=== PATIENT | female | born 1995 | race Caucasian/White ===

== ENCOUNTER 2021-03-30 09:32 | Outpatient (RCR) | payer BC, SELFPAY ==
[2021-03-24 08:07] VITALS: BMI 30.2
[2021-03-24 08:12] VITALS: BMI 30.2
== END 2021-06-08 12:10 | disposition home or self-care (01) ==
LOC: ANHDMC 09:32
PROVIDERS: PCP Physician Assistant; Visit Provider Obstetrics & Gynecology
DX: O24.419 Gestational diabetes mellitus in pregnancy, unspecified control (principal); Z3A.00 Weeks of gestation of pregnancy not specified; Z71.3 Dietary counseling and surveillance; Z71.89 Other specified counseling
CPT/HCPCS: 76816; 76819; 97802; G0108

== ENCOUNTER 2021-04-28 11:37 | Outpatient (RCR) | payer BC, SELFPAY ==
[2021-01-20 09:58] VITALS: BP 113/64; PULSE 82
[2021-03-30 10:05] VITALS: PULSE 88
[2021-04-03 08:02] VITALS: BP 102/66; PULSE 78
[2021-04-07 09:05] VITALS: BP 119/59; PULSE 90
[2021-04-10 08:20] VITALS: BP 115/61; PULSE 94
[2021-04-14 08:44] VITALS: BP 110/71; PULSE 89
[2021-04-17 08:16] VITALS: BP 116/72; PULSE 84
[2021-04-21 09:45] VITALS: BP 113/63; PULSE 82
[2021-04-24 08:15] VITALS: BP 116/68; PULSE 83
--- NOTE | ~2021-04-28 | US_ITS ---
EXAMINATION: US OB follow up w BPP EXAM DATE: 04/07/2021 08:58 INDICATION: GDM/BPP, CONCHITA, growth. 3rd trimester. TECHNIQUE: Pelvic obstetrical transabdominal sonogram was performed by a technologist. There are mu ltiple grayscale and Doppler images available for interpretation. Comparison is made to prior examina tion from 01/20/2021. FINDINGS: There is a single fetus identified in vertex presentation with a heart rate of 140 beats pe r minute. The placenta is located in the anterior position. There is no sonographic evidence of retr oplacental hemorrhage identified. The amniotic fluid index is 20.7 centimeters, which is normal. BIOMETRIC DATA: Biparietal diameter (BPD): 9.2 cm --------------> 37 weeks 3 days. Head circumference (HC): 32.5 cm ---------------> 36 weeks 6 days. Abdominal circumference (AC): 30.8 cm ---------> 34 weeks 5 days. Femur length (FL): 6.9 cm ------------------------> 35 weeks 3 days. These measurements are concordant. HC/AC ratio is 1.06 (The 5th -- 95th percentile range is 0.92-1.08. Estimated weight is 2667 g +/- 400 g. This is the 73rd percentile when the currently reported clinical gestation age 34 weeks 3 days, clinical estimated date of delivery (KIRILL-OPE) 05/16 is used. F etal estimated gestational age based on measurements from this exam is 36 weeks 1 day, with an estima camila date of delivery (KIRILL-AUA) 05/04. BIOPHYSICAL PROFILE (performed by the technologist) breathing (30 sec sustained breathing in 30 minutes): 2 out of 2 movement (3 gross body movements in 30 minutes): 2 out of 2 tone (one episode of vmtingr-mfahflgrz-iapggrr limb movement): 2 out of 2 Amniotic fluid pocket (2 cm): 2 out of 2 Total score: 8 out of 8 IMPRESSION: 1. Single fetus with heart rate of 140 bpm, 2667 g, the 73rd percentile using gestational age 34 wee ks 3 days. 2. Normal biophysical profile score of 8 out of 8. Reviewed, dictated and finalized at location B. CTOR TRADE IMPRESSION: 1. Single fetus with heart rate of 140 bpm, 2667 g, the 73rd percentile using gestational age 34 weeks 3 days. 2. Normal biophysical profile score of 8 out of 8.
--- NOTE | ~2021-04-28 | US_ITS ---
EXAMINATION: US OB BPP wo non-stress EXAM DATE: 04/21/2021 09:46 INDICATION: Gestational Diabetes 3rd trimester. TECHNIQUE: Pelvic obstetrical transabdominal sonogram was performed by a technologist. There are mu ltiple grayscale and Doppler images available for interpretation. Comparison is made to prior examina tion from 04/14/2021. FINDINGS: There is a single fetus identified in vertex presentation with a heart rate of 148 beats pe r minute. The placenta is located in the anterior position. There is no sonographic evidence of retr oplacental hemorrhage identified. BIOPHYSICAL PROFILE (performed by the technologist) breathing (30 sec sustained breathing in 30 minutes): 2 out of 2 movement (3 gross body movements in 30 minutes): 2 out of 2 tone (one episode of rctphku-giosrwiig-hpcbszu limb movement): 2 out of 2 Amniotic fluid pocket (2 cm): 2 out of 2 Total score: 8 out of 8 IMPRESSION: 1. Single fetus with heart rate of 148 bpm. 2. Normal biophysical profile score of 8 out of 8. Reviewed, dictated and finalized at location A. X RAY CONTROL EQUIPMENT REPAIRER
--- NOTE | ~2021-04-28 | US_ITS ---
EXAMINATION: US OB limited EXAM DATE: 01/20/2021 10:12 INDICATION: Status post fall, well being, check placenta. 2nd trimester. TECHNIQUE: Pelvic obstetrical transabdominal sonogram was performed by a technologist. There are mu ltiple grayscale and Doppler images available for interpretation. There are no earlier studies of th is gestation for comparison. FINDINGS: There is a single fetus identified in breech presentation with a heart rate of 157 beats pe r minute. The placenta is located in the anterior position. Placental margin to internal cervical os distance is 3.3 cm. There is hypoechoic region along the inferior retroplacental margin measuring 1.1 x 1.7 x 4.5 cm. Pos sible retroplacental marginal hematoma. IMPRESSION: 1. Single fetus in breech presentation with heart rate 157 beats per minute. 2. Retroplacental inferior marginal hypoechoic region, possible hematoma. Venous martínez would be anoth er consideration. Consider follow-up exam. Reviewed, dictated and finalized at location A. DENT ANALYST IMPRESSION: 1. Single fetus in breech presentation with heart rate 157 beats per minute. 2. Retroplacental inferior marginal hypoechoic region, possible hematoma. Veno us martínez would be another consideration. Consider follow-up exam.
--- NOTE | ~2021-04-28 | US_ITS ---
EXAMINATION: US OB BPP wo non-stress DATE: 04/14/2021 08:39 INDICATION: Gestational diabetes. Third trimester. TECHNIQUE: Real-time pelvic ultrasound was performed. COMPARISON: Ultrasound 04/07/2021 FINDINGS: There is a single living fetus in vertex presentation. The placenta is anterior. heart rate is 138 beats per minute (bpm). Biophysical profile performed by the technologist: breathing (30 sec sustained breathing in 30 minutes): 2 out of 2 movement (3 gross body movements in 30 minutes): 2 out of 2 tone (one episode of axjgooy-nacqigvcm-qwlymej limb movement): 2 out of 2 Amniotic fluid pocket (2 cm): 2 out of 2 Total score: 8 out of 8 IMPRESSION: 1. Single living fetus in vertex presentation. 2. Biophysical profile 8 out of 8. Reviewed, dictated and finalized at location A. SORTER
--- NOTE | ~2021-04-28 | US_ITS ---
EXAMINATION: US OB follow up w BPP DATE: 04/28/2021 12:41 INDICATION: Evaluate growth and biophysical profile. TECHNIQUE: Real-time ultrasound of the pelvis was performed. The interpreting radiologist was not pre sent for the study. COMPARISON: Comparison to multiple prior studies sequentially, with oldest reviewed study dated 09/2021. . FINDINGS: There is a single living fetus in vertex presentation. The placenta is anterior. cardiac activ ity and movement are noted. heart rate is 139 beats per minute (bpm). The amniotic fluid index is 11.5 cm, which is normal. The following biometric data were obtained: BPD: 97. cm corresponds to gestational age 39 weeks 4 day(s). Head circumference: 345 cm corresponds to gestational age 39 weeks 6 day(s). Abdominal circumference: 359 cm corresponds to gestational age 39 weeks 6 day(s). Femur length: 72 cm corresponds to gestational age 36 weeks 6 day(s). Head circumference to abdominal circumference ratio: 0.96. Estimated weight: 3702 g plus or minus 555 g. Biophysical profile performed by the technologist: breathing (30 sec sustained breathing in 30 minutes): 2 out of 2 movement (3 gross body movements in 30 minutes: 2 out of 2 tone (one episode of ykhnfgn-mfodtjvne-nwwzykc limb movement): 2 out of 2 Amniotic fluid pocket (2 cm): 2 out of 2 Total score: 8 out of 8 IMPRESSION: 1. Single living fetus in vertex presentation with heart rate of 139 bpm with an estimated gest ational age of 39 weeks 1 day by initial ultrasound (KIRILL 05/04/2021). 2. Normal placenta. 3. Biophysical profile 8 out of 8. Reviewed, dictated and finalized at location A. UCTION CLERKS SUPERVISOR IMPRESSION: 1. Single living fetus in vertex presentation with heart rate of 139 bpm with an estimated gestational age of 39 weeks 1 day by initial ultrasound (KIRILL 05/04/2021). 2. Normal placenta. 3. Biophysical profile 8 out of 8.
--- NOTE | ~2021-04-28 | US_ITS ---
CORRECTED REPORT Report moved from [id number]. 04/03/2021 cinda EXAMINATION: US OB follow up w BPP DATE: 03/30/2021 10:33 INDICATION: Gestational diabetes. Third trimester. TECHNIQUE: Real-time pelvic ultrasound was performed. COMPARISON: None. FINDINGS: There is a single living fetus in vertex presentation. The placenta is anterior. heart rate is 140 beats per minute (bpm). The amniotic fluid index is 15.4 cm, which is normal. The following biometric data were obtained: Biparietal diameter (BPD): 8.9 cm; head circumference (HC): 31.8 cm; abdominal circumference (AC): 31.3 cm; femur length (FL): 6.5 cm. These measurements are concordant. Estimated weight is 2536 g +/- 380 g, which correlates with the 87th percentile when 05/16/21 is used as estimated date of delivery. As single measurements, these parameters are each equal to the following estimated gestational ages: BPD: 35 weeks 5 days. HC: 35 weeks 6 days. AC: 35 weeks 1 days. FL: 33 weeks 4 days. estimated gestational age based solely on measurements from this exam is 35 weeks 1 days +/- 2 weeks 3 days. Biophysical profile performed by the technologist: breathing (30 sec sustained breathing in 30 minutes): 2 out of 2 movement (3 gross body movements in 30 minutes): 2 out of 2 tone (one episode of jqiippb-vyiwykgvg-slijtru limb movement): 2 out of 2 Amniotic fluid pocket (2 cm): 2 out of 2 Total score: 8 out of 8 IMPRESSION: 1. Single living fetus in vertex presentation. 2. Estimated weight is 2536 g +/- 380 g, which correlates with the 87th percentile when 05/16/21 is used as estimated date of delivery. 3. Biophysical profile 8 out of 8. Reviewed, dictated and finalized at location A. SAVAGE
[2021-04-28 14:51] VITALS: BP 121/73; PULSE 81
== END 2021-04-28 23:59 | disposition home or self-care (01) ==
LOC: ANHOBOP 11:37
PROVIDERS: PCP Physician Assistant; Visit Provider Obstetrics & Gynecology
DX: O99.891 Other specified diseases and conditions complicating pregnancy (principal); W19.XXXA Unspecified fall, initial encounter; Z3A.23 23 weeks gestation of pregnancy; O24.419 Gestational diabetes mellitus in pregnancy, unspecified control; Z3A.33 33 weeks gestation of pregnancy; Z3A.34 34 weeks gestation of pregnancy; Z3A.35 35 weeks gestation of pregnancy; Z3A.36 36 weeks gestation of pregnancy; Z3A.37 37 weeks gestation of pregnancy
CPT/HCPCS: 59025; 76815; 76816; 76819

== ENCOUNTER 2021-05-12 08:38 | Outpatient (RCR) | payer BC, SELFPAY ==
[2021-05-01 08:13] VITALS: BP 117/67; PULSE 97
[2021-05-05 09:40] VITALS: BP 114/67; PULSE 84
[2021-05-08 08:49] VITALS: BP 127/71; PULSE 83
--- NOTE | ~2021-05-12 | US_ITS ---
EXAMINATION: US OB follow up w BPP DATE: 05/12/2021 10:40 INDICATION: Gestational diabetes. Third trimester. TECHNIQUE: Real-time pelvic ultrasound was performed. COMPARISON: None. FINDINGS: There is a single living fetus in vertex presentation. The placenta is anterior. heart rate is 141 beats per minute (bpm). The amniotic fluid index is 14.8 cm, which is normal. The following biometric data were obtained: Biparietal diameter (BPD): 9.8 cm; head circumference (HC): 36.1 cm; abdominal circumference (AC): 36 .6 cm; femur length (FL): 7.8 cm. These measurements are concordant. Estimated weight is 4117 g +/- 618 g, which correlates with the 91st percentile when 05/16/21 is used as estimated date of delivery. As single measurements, these parameters are each equal to the following estimated gestational ages: BPD: 40 weeks 0 days. HC: Out of range. AC: 40 weeks 4 days. FL: 39 weeks 5 days. estimated gestational age based solely on measurements from this exam is 40 weeks 1 days +/- 2 weeks 6 days. Biophysical profile performed by the technologist: breathing (30 sec sustained breathing in 30 minutes): 2 out of 2 movement (3 gross body movements in 30 minutes): 2 out of 2 tone (one episode of nzoroci-spbqxbwfc-kgnigyf limb movement): 2 out of 2 Amniotic fluid pocket (2 cm): 2 out of 2 Total score: 8 out of 8 IMPRESSION: 1. Single living fetus in vertex presentation. 2. Large for gestational age. Estimated weight is 4117 g +/- 618 g, which correlates with the 9 1st percentile when 05/16/21 is used as estimated date of delivery. 3. Biophysical profile 8 out of 8. Reviewed, dictated and finalized at location A. IMPRESSION: 1. Single living fetus in vertex presentation. 2. Large for gestational age. Estimated weight is 4117 g +/- 618 g, which correlates with the 91st percentile when 05/16/21 is used as estimated date of delivery. 3. Biophysical profile 8 out of 8.
--- NOTE | ~2021-05-12 | US_ITS ---
EXAMINATION: US OB BPP wo non-stress EXAM DATE: 05/05/2021 09:35 INDICATION: GDM 3rd trimester. TECHNIQUE: Pelvic obstetrical transabdominal sonogram was performed by a technologist. There are mu ltiple grayscale and Doppler images available for interpretation. Comparison is made to prior examina tion from 04/28/2021. FINDINGS: There is a single fetus identified in vertex presentation with a heart rate of 147 beats pe r minute. The placenta is located in the anterior position. There is no sonographic evidence of retr oplacental hemorrhage identified. BIOPHYSICAL PROFILE (performed by the technologist) breathing (30 sec sustained breathing in 30 minutes): 2 out of 2 movement (3 gross body movements in 30 minutes): 2 out of 2 tone (one episode of bxmojpc-nqgngbxrh-kaikkrc limb movement): 2 out of 2 Amniotic fluid pocket (2 cm): 2 out of 2 Total score: 8 out of 8 IMPRESSION: 1. Single fetus with heart rate of 147 bpm. 2. Normal biophysical profile score of 8 out of 8. Reviewed, dictated and finalized at location A. OR FRONT END WEB DEVELOPER
[2021-05-12 09:34] VITALS: BP 127/48; PULSE 111
== END 2021-06-06 13:22 | disposition home or self-care (01) ==
LOC: ANHOBOP 08:38
PROVIDERS: PCP Physician Assistant; Visit Provider Obstetrics & Gynecology
DX: O24.419 Gestational diabetes mellitus in pregnancy, unspecified control (principal); O36.63X0 Maternal care for excessive fetal growth, third trimester, not applicable or unspecified; Z3A.37 37 weeks gestation of pregnancy; Z3A.38 38 weeks gestation of pregnancy; Z3A.39 39 weeks gestation of pregnancy
CPT/HCPCS: 59025; 76816; 76819

== ENCOUNTER 2021-05-15 15:58 | Inpatient (IN) | payer BC, SELFPAY ==
[2021-05-15] VITALS (10 sets, daily range): BP systolic 112–128; BP diastolic 63–81; PULSE 77–89; TEMP 36.9; BMI 30.8
[2021-05-15 16:54] LABS: Basophils Percent Auto 0.2 % (0.2-1.2); Eosinophils Absolute Auto 0.1 K/mm3 (0-0.3); Eosinophils Percent Auto 0.8 % (0-4.4); Hematocrit 37.3 % (37.0-47.0); Hemoglobin 12.6 g/dL (12.0-15.0); Immature Granulocyte Absolute 0.03 K/mm3 (0.00-0.031); Immature Granulocyte Percent A 0.3 % (0-0.5); Lymphocytes Percent Auto 17.5 % (18.3-44.2); Mean Corpuscular HGB Conc 33.8 g/dl (32-36); Mean Corpuscular Hemoglobin 29.2 pg (26-34); Mean Corpuscular Volume 86.5 fl (80-100); Mean Platelet Volume 10.9 fl (7.4-10.4); Monocytes Absolute Auto 0.6 K/mm3 (0.1-0.6); Neutrophils Absolute Auto 6.8 K/mm3 (1.3-6.7); Neutrophils Percent Auto 74.2 % (45.5-73.1); Platelet Count Result 239 k/mm3 (150-375); Red Blood Count 4.31 M/mm3 (4.2-5.4); Red Cell Distribution Width 12.8 % (11.5-14.5); White Blood Count 9.2 K/mm3 (4.5-10.0)
[2021-05-15] MEDS: DINOPROSTONE 10 MG VAG INSERT VAGINAL (16:57)
--- NOTE | 2021-05-15 16:59 | LDADM ---
This patient, Shanta Trinidad, was admitted to Labor/Delivery/Recovery 106 on 05/15/21 at 15:58. Plans for labor, pain management and were discussed with patient. Patient/family oriented to hospital policies and general routines including ID bracelet, bed and alarms, visiting hours, pain management, procedures, bathroom and other care routines, personal items, smoking policy, room service/diet and guest tray routines, security routines, and visiting hours. Patient/Family are encouraged to report perceived risks to care and to ask questions if they do not understand what they are told or what they should do. See OBIX for further documentation.
[2021-05-15 17:21] LABS: Glucose Point of Care 97 mg/dl (65-105)
[2021-05-15 17:43] LABS: HIV 1/2 Ab P24 Ag Result Negative (Negative)
[2021-05-15 21:53] LABS: Glucose Point of Care 92 mg/dl (65-105)
[2021-05-15] MEDS: fentaNYL CITRATE INJ (*CRX) 100 MCG/2 ML VIAL 50 MCG IV PUSH (23:56)
[2021-05-16] VITALS (152 sets, daily range): BP systolic 74–148; BP diastolic 37–107; PULSE 60–214; RESP 14–20; TEMP 36.4–37.2; O2SAT 95–100
[2021-05-16 00:12] LABS: Glucose Point of Care 92 mg/dl (65-105)
[2021-05-16] MEDS: LACTATED RINGERS 1,000 ML 125 ML IV CONT (00:13)
[2021-05-16] MEDS: OXYTOCIN 30 UNITS/NS 500 ML 30 UNITS/500 ML BAG IV CONT (00:14)
[2021-05-16] MEDS: fentaNYL CITRATE INJ (*CRX) 100 MCG/2 ML VIAL IV PUSH ×3 (01:00→03:10)
[2021-05-16 02:10] LABS: Glucose Point of Care 103 mg/dl (65-105)
[2021-05-16] MEDS: LACTATED RINGERS 1,000 ML 999 ML IV CONT ×2 (03:41→04:19)
--- NOTE | 2021-05-16 03:54 | WPDANESEPP ---
Anes - Eval Pre Procedure Procedure: labor epidural Date/Time: 05/16/21 03:54 Surgeon: blayne Preop Diagnosis: pain during labor Pre Op Diagnosis: Induction of Labor Patient Data Age: 25 Gender: F Height: 1.73 m Weight: 92 kg Allergies Allergy/AdvReac Type Severity Reaction Status Date / Time amoxicillin Allergy Mild rash Verified 05/13/21 08:57 Home Medications Medication Instructions Recorded Confirmed Type PNV cmb#95-ferrous fumarate-FA 1 tablet PO DAILY 04/17/21 05/15/21 History [] escitalopram oxalate 10 mg tablet 10 mg PO DAILY #90 tablet 05/14/21 05/15/21 Rx buspirone 30 mg PO HS 05/15/21 05/15/21 History Laboratory Tests 05/15/21 05/15/21 05/15/21 16:40 16:41 16:41 WBC 9.2 K/mm3 K/mm3 (4.5-10.0) RBC 4.31 M/mm3 M/mm3 (4.2-5.4) Hgb 12.6 g/dL g/dL (12.0-15.0) Hct 37.3 % % (37.0-47.0) MCV 86.5 fl fl (80-100) MCH 29.2 pg pg (26-34) MCHC 33.8 g/dl g/dl (32-36) RDW 12.8 % % (11.5-14.5) Plt Count 239 k/mm3 k/mm3 (150-375) MPV 10.9 fl H fl (7.4-10.4) Immature Gran % (Auto) 0.3 % % (0-0.5) Neut % (Auto) 74.2 % H % (45.5-73.1) Lymph % (Auto) 17.5 % L % (18.3-44.2) [place] % (Auto) 7.0 % % (2.6-8.5) Eos % (Auto) 0.8 % % (0-4.4) Baso % (Auto) 0.2 % % (0.2-1.2) Lymph # (Auto) 1.60 K/mm3 K/mm3 (0.9-3.2) [place] # (Auto) 0.6 K/mm3 K/mm3 (0.1-0.6) Eos # (Auto) 0.1 K/mm3 K/mm3 (0-0.3) Baso # (Auto) 0.0 K/mm3 K/mm3 (0.0-0.1) Abs Immat Gran (auto) 0.03 K/mm3 K/mm3 (0.00-0.031) Absolute Neuts (auto) 6.8 K/mm3 H K/mm3 (1.3-6.7) Absolute Nucleated RBC 0.0 K/mm3 K/mm3 (0.0-0.012) Nucleated RBC % 0.0 % % (0.0-0.2) POC Capillary Glucose RPR Pending HIV 1&2 Ab/P24 Ag 4thGn Blood Type O Positive Antibody Screen Negative 05/15/21 05/15/21 05/15/21 16:41 17:08 21:48 WBC RBC Hgb Hct MCV MCH MCHC RDW Plt Count MPV Immature Gran % (Auto) Neut % (Auto) Lymph % (Auto) [place] % (Auto) Eos % (Auto) Baso % (Auto) Lymph # (Auto) [place] # (Auto) Eos # (Auto) Baso # (Auto) Abs Immat Gran (auto) Absolute Neuts (auto) Absolute Nucleated RBC Nucleated RBC % POC Capillary Glucose 97 mg/dl mg/dl 92 mg/dl mg/dl (65-105) (65-105) RPR HIV 1&2 Ab/P24 Ag 4thGn Negative (Negative) Blood Type Antibody Screen 05/16/21 05/16/21 00:08 02:06 WBC RBC Hgb Hct MCV MCH MCHC RDW Plt Count MPV Immature Gran % (Auto) Neut % (Auto) Lymph % (Auto) [place] % (Auto) Eos % (Auto) Baso % (Auto) Lymph # (Auto) [place] # (Auto) Eos # (Auto) Baso # (Auto) Abs Immat Gran (auto) Absolute Neuts (auto) Absolute Nucleated RBC Nucleated RBC % POC Capillary Glucose 92 mg/dl mg/dl 103 mg/dl mg/dl (65-105) (65-105) RPR HIV 1&2 Ab/P24 Ag 4thGn Blood Type Antibody Screen Patient hx anesthesia problems: none Family hx anesthesia problems: none Results Review: All pre-operative results and documents have been reviewed as part of the pre-operative evaluation. [facility] Past Medical History Medical History (Updated 04/23/21 @ 15:48 by Shea Malhotra MD) Anxiety Gestational diabetes Surgical Histo
[2021-05-16 04:46] LABS: Glucose Point of Care 123 mg/dl (65-105)
[2021-05-16 06:50] LABS: Glucose Point of Care 108 mg/dl (65-105)
--- NOTE | 2021-05-16 11:28 | WPDHPUPDATE1 ---
History and Physical Update Update Date/Time: 05/16/21 11:28 History and Physical has been reviewed, including an updated exam of the patient. There are NO changes in the patient's condition. Risks, benefits, and alternatives have been discussed and questions answered. Patient agrees to proceed with procedure.
--- NOTE | 2021-05-16 11:29 | WPDOBADMIT ---
Obstetrics - Admit Note Admission Note: record reviewed. No pertinent additions to the history and/or any subsequent changes in the physical findings that are not consistent with the expected course of the were found. Additions to the history and/or subsequent changes in the physical findings follow. None.
--- NOTE | 2021-05-16 11:30 | PM.OBPRVD ---
OB - Delivery Note Procedure Events: Gestational Diabetes Induction method: Per Pitocin Protocol and Per Cervidil Protocol Route of delivery: Episiotomy description: None Laceration Description: Perineal - 2nd Degree Delivery repair: chromic Specimen: Yes Quantitative Blood Loss (ml): 275 Anesthesia type: Epidural Disposition: Floor Narrative: Draped usual manner for this procedure. Maternal expulsive efforts readily delivered vertex with nuchal cord noted and reduced x2. Rest of baby was delivered without difficulty cord clamped cut and placenta delivered spontaneously. Second-degree laceration was noted which was approximated 2-0 chromic to approximate vaginal tissue deep tissue and then a subcuticular layer. This point Procedure was considered terminated with uterus well contracted and No significant bleeding. Baby Weeks of gestation at delivery: 39 gender: Female Weight (pounds): 8 Weight (ounces): 1 presentation: vertex Placenta delivery description: Spontaneous Cord Vessel Description: 3 Vessels, Nuchal Cord (times 2) and Delayed Cord Clamping score one minute: 8 score five minutes: 9 AMG Delivery Billing Delivery Delivery: Delivery Charge
[2021-05-16] MEDS: OXYTOCIN 30 UNITS/NS 500 ML 30 UNITS/500 ML BAG 125 UNITS IV CONT (11:40)
[2021-05-16] MEDS: WITCH HAZEL 40 PADS 1 PAD TOPICAL (13:38)
[2021-05-16] MEDS: BENZOCAINE 20% AER SPR (*SP) 56 GM CAN 1 SPRAY TOPICAL (13:38)
--- NOTE | 2021-05-16 13:55 | PC.NURSE ---
Infant arrived on unit via open crib accompanied by both parents and taken to waiting car. Follow up appts confirmed
--- NOTE | 2021-05-16 13:55 | OBPPTRN ---
Patient transferred to post room # 291 via wheelchair accompanied by spouse and . Support person present. Oriented to unit, room, information board, rooming in, admission packet and security measures. PT introductions made and plan of care discussed per post , pain management, breast feeding, daily care activities. PT received instructions per one to one instructions, mom baby care guide and demonstrations. PT and spouse both recipients of such instructions and no barriers to learning identified at this time. Patient verbalizes understanding.
[2021-05-16] MEDS: IBUPROFEN 600 MG TABLET PO (20:58)
[2021-05-16] MEDS: busPIRone HCL 10 MG TABLET 30 MG PO (20:58)
[2021-05-17 04:40] VITALS: BP 122/82; PULSE 64; RESP 16; TEMP 36.6; O2SAT 100
[2021-05-17 05:00] LABS: Hematocrit 36.4 % (37.0-47.0); Hemoglobin 12.1 g/dL (12.0-15.0)
[2021-05-17] MEDS: IBUPROFEN 600 MG TABLET PO ×3 (05:50→18:15)
[2021-05-17] MEDS: ACETAMINOPHEN 325 MG TABLET 650 MG PO ×3 (05:50→18:16)
[2021-05-17] MEDS: LANOLIN (LANSINOH) 7.5 GM CREAM 1 APPLIC TOPICAL (07:27)
--- NOTE | 2021-05-17 07:45 | PC.NURSE ---
PT introductions made and plan of care discussed per post , pain management, breast feeding, daily care activities. PT received instructions per one to one instructions, mom baby care guide and demonstrations during this shfit. PT and spouse both recipients of such instructions and no barriers to learning identified at this time. Patient verbalizes understanding.
[2021-05-17 09:00] VITALS: BP 118/68; PULSE 64; PULSE 68; RESP 16; RESP 18; TEMP 36.6; O2SAT 100
--- NOTE | 2021-05-17 10:02 | PM.OBDSVD ---
DS: Admitting Diagnosis Discharge Date 05/18/2021 Admitting Diagnosis OB - DS: Summary OB Procedures : None OB Procedures Intrapartum: Spontaneous Vag Delivery OB Procedures: : None Time Spent with Patient Time attestation: Total time spent providing and/or coordinating discharge services: DS: Data Data Completed and Pending Pending studies at discharge: Pending at discharge 05/16/21 11:53 Surgical [PTH] Routine Labs on day of discharge: Labs from last 24 hours 05/17/21 04:52 Hgb 12.1 Hct 36.4 L Discharge Plan Discharge Discharging Clinician: Tony Kelley Patient Disposition: Home, Self-Care Activity: as tolerated Diet: as tolerated Patient Instructions: Antibiotic Form Stand Alone Forms: General Discharge Information Follow-up/Referrals: Tony Kelley MD [Physician] - 3 Weeks Discharge Medications: New ibuprofen 600 mg Tablet 600 mg PO Q6H PRN (Reason: Cramping) Qty: 30 RF: 0 Continued escitalopram oxalate [Lexapro] 10 mg tablet 10 mg PO DAILY Qty: 90 RF: 0 PNV cmb#95-ferrous fumarate-FA [] 28 mg iron- 800 mcg Tablet 1 tablet PO DAILY RF: 0 buspirone 15 mg tablet 30 mg PO HS RF: 0 Date of admission: 05/15/21 15:58 Primary Care Provider: ReynaldoChen Admitting Provider: Tony Kelley Attending physician on admission: Tony Kelley Condition: Stable
[2021-05-17] MEDS: MULTIVIT/MIN/PREN/FOL AC/IRON TABLET 1 TAB PO (12:28)
[2021-05-17] MEDS: DOCUSATE SODIUM 100 MG CAPSULE PO ×2 (12:28→18:16)
[2021-05-17] MEDS: ESCITALOPRAM OXALATE 10 MG TABLET PO (12:28)
--- NOTE | 2021-05-17 16:01 | WPDANLDPN2 ---
Anes-Prog Note L&D Date/Time: 05/17/21 16:01 Comfortable throughout: labor and delivery Neuraxial method: epidural Epidural/Spinal procedure site: clean & non-tender Neuro status: Neuro function grossly intact. Cardiovascular status: normal Respiratory status: normal Airway patency: baseline Mental status: baseline Post-Op hydration status: normal Vital Signs: Last Vital Signs Temp 36.6 C 05/17/21 09:00 Pulse 68 05/17/21 09:00 Resp 18 05/17/21 09:00 BP 118/68 05/17/21 09:00 Pulse Ox 100 05/17/21 09:00 Pain score (VAS): 03/09 I/O: Intake & Output 05/17/21 05/17/21 05/17/21 07:59 15:59 23:59 Intake Total 480 Balance 480 Post-procedural complaints: none Patient feedback: Patient satisfied with anesthetic care.
[2021-05-17 18:18] VITALS: BP 120/80; PULSE 83; RESP 18; TEMP 36.6
[2021-05-17] MEDS: busPIRone HCL 10 MG TABLET 30 MG PO (20:33)
[2021-05-17] MEDS: ZOLPIDEM TARTRATE (*CRX) 5 MG TABLET PO (22:03)
[2021-05-18 08:00] VITALS: PULSE 72; RESP 16; O2SAT 99
[2021-05-18 08:30] VITALS: BP 121/70; PULSE 72; RESP 16; TEMP 36.6; O2SAT 99
--- NOTE | 2021-05-18 09:05 | PC.NURSE ---
[id number] Introductions made and consulted with patient to assess needs related to . Mother led conversation with her experience with feeding baby so far. Mother works well with her infant but is concerned about the latching on the left breast. Bilateral nipples are bruised and mother states that all of the feedings have not gone well. is in the nursery for an assessment. 0821- 0900 Infant brought to the parents. Reviewed good handwashing when working with infant, breast, nipples and how to protect the nipples with a deep latch. Encouraged understanding the benefits of skin to skin, responding to feeding cues, frequencies of feeding 8-12 times in 24 hours (approximately 2-3 hours), duration of feedings, milk production, intake/output feeding sheet and signs of adequate intake. Discussed stimulating infant with skin to skin, hand expressing colostrum, touch and talking to to encourage eating at the breast. Reviewed positioning and alignment, supporting breast, off-centered (asymmetrical latch) and leading with the chin with big open wide gape. Infant latched optimally to the left breast in cross cradle position. Education given to mother of how to visualize suck/swallow ratios and drinking at the breast. was able to maintain latch without discomfort to mother. Nipple care, comfort and healing with warm, wet washcloth to rinse breast and leave to air-dry but have clean hands when touching the nipple/breast. Resources used to facilitate learning were used from the visual handout/ tool/mom and baby guide. Mother voiced understanding responding to feeding cues, may need to stimulating approximately 2-3 hours from the start of the last feeding, calling for assistance if the does not latch or there discomfort . Reported to primary RN.
[2021-05-18] MEDS: MULTIVIT/MIN/PREN/FOL AC/IRON TABLET 1 TAB PO (09:41)
[2021-05-18] MEDS: DOCUSATE SODIUM 100 MG CAPSULE PO (09:41)
[2021-05-18] MEDS: ESCITALOPRAM OXALATE 10 MG TABLET PO (09:42)
--- NOTE | 2021-05-18 09:51 | PC.NURSE ---
Patient viewed the discharge video Mother & Baby Care, The First Two Weeks . Patient was given the opportunity and encouraged to ask questions. Patient verbalized understanding of information shared and has been given the mother/baby guide for home reference.
[2021-05-18 17:56] LABS: Rapid Plasma Reagin Non-Reactive (NonReactive)
[2021-05-19 07:50] VITALS: BP 134/89; PULSE 79; RESP 20; TEMP 36.9; O2SAT 97
--- NOTE | 2021-05-20 11:50 | PM.OBDSVD ---
DS: Admitting Diagnosis Discharge Date 05/18/21 Admitting Diagnosis OB - DS: Summary OB Procedures : None OB Procedures Intrapartum: Spontaneous Vag Delivery OB Procedures: : None Time Spent with Patient Time attestation: Total time spent providing and/or coordinating discharge services: DS: Data Data Completed and Pending Pending studies at discharge: Pending at discharge 05/16/21 11:53 Surgical [PTH] Routine Discharge Plan Discharge Discharging Clinician: Tony Kelley Patient Disposition: Home, Self-Care Activity: as tolerated Diet: as tolerated Discharge Instructions: Education: Mom and Baby Guide Given to: Mother Follow-Up: Call your delivering provider's office for an appointment to be seen in: 3 weeks Mom and baby [facility] come to [facility] for the follow-up appointment. Appointment Date/Time: Wednesday, May 19, 2021 at 8:00 a.m. What to expect at your follow-up visit: Blood Pressure Check Physical Assessment Call [phone] if you are unable to keep your appointment time. BREAST CARE: * Wear a snug supportive bra. * For engorgement discomfort: Breast Feeding: * Apply warm moist washcloths * Express milk as needed to relieve engorgement * Wear loose clothing * For sore nipples: * Identify correct latch-on * Apply warm moist washcloths before and after nursing * Air dry nipples after nursing * May apply Lansinoh cream to nipples EPISIOTOMY/PERINEAL CARE: * Until bleeding stops, use your karin bottle after urinating * Change your pad frequently throughout the day * You may take sitz baths several times a day (fill your bathtub with warm water and soak for 20 minutes.) Do NOT bathe in the water * No tub baths until seen by your physician - You may shower ACTIVITY: * Rest as much as possible. * Do not exercise or lift anything heavier than your baby (such as laundry or other children.) * Avoid stairs or driving as much as possible. * Do not put anything into the vagina. No douching, tampons, or sexual activity until seen by physician. NOTIFY PHYSICIAN IF YOU HAVE ANY QUESTIONS OR IF ANY OF THE FOLLOWING SYMPTOMS OCCUR: * If your perineum becomes red, swollen, or more painful than what you have experienced in the hospital. * If your vaginal bleeding becomes foul smelling. * If your vaginal bleeding becomes more heavy than a period or if your bleeding changes from pink to bright red. However, you may pass an occasional walnut-sized clot once or twice for the first week . * If you experience a sharp, shooting pain in you calves. * If you discover a hard, reddened area on your breast or if you experience flu-like symptoms. DIET: * Eat regular, well-balanced meals. * Drink plenty of fluids daily. If , drink to thirst. Stand Alone Forms: General Discharge Information Follow-up/Referrals: Tony Kelley MD [Physician] - 3 Weeks Discharge Medications: New ibuprofen 600 mg Tablet 600 mg PO Q6H PRN (Reason: Cramping) Qty: 30 RF: 0 Continued escitalopram oxalate [Lexapro] 10 mg tablet 10 mg PO DAILY Qty: 90 RF: 0 PNV [id number] fumarate-FA [] 28 mg iron- 800 mcg Tablet 1 tablet PO DAILY RF: 0 buspirone 15 mg tablet 30 mg PO HS RF: 0 Date of admission: 05/15/21 15:58 Primary Care Provider: Agnie,Chen Painter Admitting Provider: Tony Kelley Attending physician on admission: Tony Kelley Condition: Stable
== END 2021-05-18 12:22 | disposition home or self-care (01) | DRG 807 ==
LOC: ANHLDR 16:08 → ANHOB2 05-16 13:56
PROVIDERS: Admitting Provider Obstetrics & Gynecology; PCP Physician Assistant; Visit Provider Obstetrics & Gynecology
DX: O24.429 Gestational diabetes mellitus in childbirth, unspecified control (principal); Z37.0 Single live birth; Z3A.40 40 weeks gestation of pregnancy; O36.8330 Maternal care for abnormalities of the fetal heart rate or rhythm, third trimester, not applicable or unspecified; O70.1 Second degree perineal laceration during delivery; O69.81X0 Labor and delivery complicated by cord around neck, without compression, not applicable or unspecified
CPT/HCPCS: 36415; 82948; 84112; 85014; 85018; 85025; 86592; 86703; 86850; 86900; 86901; 88307; A9270; G0432; J2590; J2795; J3010; J7120

== ENCOUNTER 2022-09-14 08:08 | Outpatient (CLI) | payer OTHER, SELFPAY ==
[2022-09-14 08:54] LABS: Beta HCG Quantitative < 2.39 mIU/ML
== END 2022-09-14 08:09 | disposition home or self-care (01) ==
LOC: ANHLAB 08:11
PROVIDERS: PCP Physician Assistant; Visit Provider Obstetrics & Gynecology
DX: N92.6 Irregular menstruation, unspecified (principal)
CPT/HCPCS: 36415; 84702